=== PATIENT | female | born 1965 | race Caucasian/White ===

== ENCOUNTER → 2016-12-25 | Outpatient (CLI) | payer OTHER, MEDICARE ==
[~2016-12-25] MED LIST: ACIPHEX20 MG PO; ALLERGY RELIEF1 EAC2 PO; ALPRAZOLAM0.25 M2 PO; AMOX TR-K CLV1 EAC4 PO; AZULFIDINE500 MG PO; CEFTIN500 MG PO; CHLORDIAZEPOXI1 EACH PO; CIPRO250 MG PO; CYANOCOBAL1000 MCG/2 IM; CYMBALTA60 MG PO; DEPO-PROVER150 MG/ML; DEPO-PROVER150 MG/ML IM; DEXILANT60 MG PO; DOLOPHINE HCL5 MG PO; DOXYCYCLINE HY100 MG PO; EXALGO12 MG PO; EXALGO8 MG PO; FLEXERIL10 MG PO; GABAPENTIN100 MG PO; GABAPENTIN400 MG PO; HYDROMORPHONE HC4 MG PO; LEVAQUIN500 MG PO; MARTINIC1 EACH IM; MECLIZINE HCL25 MG PO; METHADONE10 MG PO; METHOTREXATE2.5 MG PO; METOPROLOL SUCC25 MG PO; MULTIVITAMIN1 EAC2 PO; MUPIROCIN15 GM NS; NAPROSYN500 MG PO; NAPROXEN500 MG PO; NEURONTIN100 MG PO; ONE-A-DAY ESSE1 EAC1 PO; PERCOCET 5-3251 EACH PO; PERCOCET 5/31 TABLET PO; PREDNISONE20 MG PO; PRILOSEC40 MG PO; PROBIOTIC1 EAC1 PO; PROVENTIL HFA6.7 GM IH; REMICADE10 MG/ML IV; SULFAZINE500 MG PO; TOPROL XL50 MG PO; TUMERSAID TABL1 EACH PO; TURMERIC500 MG PO; TYLENOL EXTRA500 MG PO; VITAMIN D2000 UNIT PO; VITAMIN D5000 UNIT PO; XANAX0.125 MG PO; XARELTO20 MG PO; ZANTAC300 MG PO; [UNRECOGNIZED DRUG - OTHER]; [UNRECOGNIZED DRUG - OTHER] PO
== END | disposition home or self-care (01) ==
LOC: CDC 14:30
DX: Z01.810 Encounter for preprocedural cardiovascular examination (principal)
CPT/HCPCS: 93000

== ENCOUNTER 2016-12-29 07:51 | Day surgery (SDC) | payer OTHER ==
[~2016-12-29] VITALS: Ht 162.6 cm; Wt 111.0 kg
[2016-12-29 09:08] VITALS: BP 147/67
[2016-12-29 13:23] VITALS: BP 167/88
== END 2016-12-29 14:39 | disposition home or self-care (01) ==
LOC: SDC
PROC: 0SBC4ZZ Excision of Right Knee Joint, Percutaneous Endoscopic Approach (ICD-10-PCS; principal; 2016-12-29)
DX: S83.231A Complex tear of medial meniscus, current injury, right knee, initial encounter (principal); S83.281A Other tear of lateral meniscus, current injury, right knee, initial encounter; M22.41 Chondromalacia patellae, right knee; M06.9 Rheumatoid arthritis, unspecified; Z86.718 Personal history of other venous thrombosis and embolism; K50.90 Crohn's disease, unspecified, without complications; G89.29 Other chronic pain; M54.5 Low back pain; K21.9 Gastro-esophageal reflux disease without esophagitis; L40.9 Psoriasis, unspecified; I49.9 Cardiac arrhythmia, unspecified; Z98.890 Other specified postprocedural states; Z82.49 Family history of ischemic heart disease and other diseases of the circulatory system; Z83.3 Family history of diabetes mellitus; Z68.43 Body mass index [BMI] 50.0-59.9, adult
CPT/HCPCS: J0330; J1100; J1170; J1885; J2250; J2405; J2795; J3010